=== PATIENT | male | born 1955 | race Two or more races ===

== ENCOUNTER 2016-12-27 22:57 | Inpatient (IN) | payer OTHER ==
[~2016-12-27] VITALS: Ht 168.9 cm; Wt 111.1 kg
--- NOTE | 2016-12-27 23:21 | Emergency Room Report ---
History of Present Illness General Chief Complaint: Dyspnea/Respdistress Source: Patient, EMS Present Illness HPI 61YOM BIBEMS for SOB for 1 day Productive cough Was admitted 1 month ago for "almost flu" at outside hospital Denies chest pain, abd pain, fever/chills History of asthma/COPD Not on Home O2 Was using home nebs, machine, advair without improvement today Allergies: Coded Allergies: No Known Allergies (Unverified , 12/27/16) Patient History Past Medical History: COPD Past Surgical History: none Pertinent Family History: none Social History: Reports: smoking Immunizations: UTD Reviewed Nursing Documentation: PMH: Agreed, PSxH: Agreed Nursing Documentation-PMH Hx Hypertension: Yes Hx Asthma: Yes Hx Diabetes: Yes Review of Systems All Other Systems: negative except mentioned in HPI Physical Exam Vital Signs Date Time Temp Pulse Resp B/P (MAP) Pulse Ox O2 Delivery O2 Flow Rate FiO2 12/27/16 22:52 97.9 100 18 98 Room Air Sp02 EP Interpretation: reviewed, normal General Appearance: normal inspection, well appearing, no apparent distress, alert, GCS 15, non-toxic Head: normocephalic, atraumatic Eyes: bilateral eye PERRL, bilateral eye EOMI ENT: normal ENT inspection, hearing grossly normal, normal voice Neck: normal inspection, full range of motion, supple, no bony tend Respiratory: normal inspection, lungs clear, normal breath sounds, decreased breath sounds, speaking full sentences, wheezing Cardiovascular #1: regular rate, rhythm, no edema Gastrointestinal: normal inspection, normal bowel sounds, non tender, soft, no guarding, no hernia Genitourinary: no CVA tenderness Musculoskeletal: normal inspection, back normal, normal range of motion, Octavia' s Sign negative Neurologic: normal inspection, alert, oriented x3, responsive, territory sales manager III-XII nml as tested, motor strength/tone normal, speech normal Psychiatric: normal inspection, judgement/insight normal, mood/affect normal Skin: normal inspection, normal color, no rash Lymphatic: normal inspection Medical Decision Making Diagnostic Impression: Primary Impression: COPD exacerbation ER Course VSS. Afebrile. No hypoxia Improved on nebs, steroids Did not warrant Bipap Labs: No leuks. H&h stable CXR: No PNA ECG: TWI in V4-6, 2, 3, AVF SOB Likely COPD exacerbation Improved with nebs, steroids Empiric Azithro/Cefepime given bc of hospitalization one month prior however afebrile, no leuks, not-septic appearing TWI in inferior and lateral leads but troponin is <0.05 and no active chest pain - low suspicion for ACS. Endorsed to Dr Barry at 1130pm for tele admission EKG Diagnostic Results Rate: normal Rhythm: NSR ST Segments: other - TWI in V4-6, 2, 3, AVF ASA given to the pt in ED: No Rhythm Strip Diag. Results EP Interpretation: yes Rate: 90 Rhythm: NSR, no PVC's, no ectopy Last Vital Signs Date Time Temp Pulse Resp B/P (MAP) Pulse Ox O2 Delivery O2 Flow Rate FiO2 12/27/16 22:52 97.9 100 18 98 Room Air Status: improved Disposition: ADMITTED INPATIENT Condition: Serious JUN BERMUDEZ M.D. Dec 27, 2016 23:21
[2016-12-27] MEDS ORDERED: LORazepam Inj 2mg/ml 1ml IV PRN (23:30)
[2016-12-27] MEDS ORDERED: Azithromycin 500 MG in NS 275 ML IV ONE (23:30)
[2016-12-27] MEDS ORDERED: Morphine Sulfate 2mg/ml Inj IVP PRN (23:30)
[2016-12-27] MEDS ORDERED: Cefepime HCl 2 GM in D5W 110 ML IVPB ONE (23:30)
[2016-12-27] MEDS ORDERED: Nitroglycerin Subl 0.4mg tab SL PRN (23:30)
[2016-12-27] MEDS ORDERED: Promethazine/Codeine 5ml UD ORAL PRN (23:30)
[2016-12-27] MEDS ORDERED: Ketorolac 30mg Inj IV PRN (23:30)
[2016-12-27] MEDS ORDERED: Albuterol/Ipratropium 3ml neb HHN PRN (23:30)
[2016-12-27 23:38] LABS: BASOPHILS % (AUTO) 1.7 % (0.0-2.0); EOSINOPHILS % (AUTO) 6.9 % (0.0-3.0); LYMPHOCYTES % (AUTO) 16.2 % (20.0-45.0); MEAN CORPUSCULAR HEMOGLOBIN 26.3 PG (27.0-31.0); MEAN CORPUSCULAR HGB CONC 29.1 G/DL (32.0-36.0); MEAN CORPUSCULAR VOLUME 90 FL (80-99); MONOCYTES % (AUTO) 7.6 % (1.0-10.0); NEUTROPHILS % (AUTO) 67.7 % (45.0-75.0); PLATELET COUNT 227 K/UL (150-450); RED BLOOD COUNT 4.58 M/UL (4.70-6.10); RED CELL DISTRIBUTION WIDTH 16.1 % (11.6-14.8); WHITE BLOOD COUNT 10.6 K/UL (4.8-10.8)
[2016-12-27] MEDS ORDERED: Albuterol ud Inhalation ONE (23:56)
[2016-12-27] MEDS ORDERED: Ipratropium 0.02% Inh Soln 2.5ml UD ONE (23:56)
[2016-12-28] VITALS (7 sets, daily range): BP systolic 143–167; BP diastolic 72–93
[2016-12-28 00:04] LABS: ALANINE AMINOTRANSFERASE 26 U/L (12-78); ALBUMIN/GLOBULIN RATIO 0.6 (1.0-2.7); ANION GAP 6 (5-15); ASPARTATE AMINO TRANSFERASE 29 U/L (15-37); CALCIUM 9.3 MG/DL (8.5-10.1); CARBON DIOXIDE 35 MMOL/L (21-32); CHLORIDE 102 MMOL/L (98-107); CKMB 3.8 NG/ML (0.0-3.6); CREATININE 1.2 MG/DL (0.55-1.30); GLOMERULAR FILTRATION RATE > 60 mL/min (>60); POTASSIUM 3.6 MMOL/L (3.5-5.1); SODIUM 143 MMOL/L (136-145); TOTAL PROTEIN 7.7 G/DL (6.4-8.2)
[2016-12-28] MEDS ORDERED: Cefepime 2gm ONE (00:08)
[2016-12-28] MEDS: Ipratropium 0.02% Inh Soln 2.5ml UD HHN SCH ×2 (00:12→00:13)
[2016-12-28] MEDS: Albuterol ud Inhalation HHN SCH ×2 (00:12→00:13)
[2016-12-28] MEDS ORDERED: Azithromycin 500mg Inj IV ONE (01:30)
[2016-12-28] MEDS ORDERED: ALBUTEROL2.5 MG/3 M INH (02:57)
[2016-12-28] MEDS ORDERED: ASPIR 8181 MG ORAL (02:58)
[2016-12-28] MEDS ORDERED: Zosyn 3.375gm inj ONE (04:51)
[2016-12-28] MEDS: Solu-MEDROL 125mg Inj IV SCH ×4 (05:29→22:12)
[2016-12-28] MEDS: Zosyn 3.375gm q8h **Extended infusion IVPB SCH ×4 (05:31→13:54)
[2016-12-28] MEDS ORDERED: Piperacillin/Tazobactam 2.25 GM in D5W 55 ML IV SCH (06:00)
[2016-12-28] MEDS ORDERED: Theophylline ER 100mg ORAL SCH (09:00)
[2016-12-28] MEDS ORDERED: Heparin 5000 units/ml inj SUBQ SCH (09:00)
--- NOTE | 2016-12-28 11:33 | History and Physical ---
History of Present Illness General Date patient seen: Dec 28, 2016 Reason for Hospitalization: Dyspnea/Respdistress Present Illness HPI 61 year old male with hx of asthma, HTN, DM presented to [facility] with cc of f SOB for 1 day and productive cough Denies chest pain, abd pain, fever/chills. He was using home nebs, machine, advair without improvement. He is admitted for acute exacerbation of Asthma. Allergies: Coded Allergies: No Known Allergies (Unverified , 12/27/16) Medication History Scheduled Aspirin* (Aspir 81*), 81 MG ORAL DAILY, (Reported) Scheduled PRN Albuterol Sulfate* (Albuterol Sulfate Hhn*), 3 ML INH Q4H PRN for Shortness of Breath, (Reported) Patient History Healthcare decision maker Resuscitation status Full Code Advanced Directive on File No Past Medical/Surgical History Past Medical/Surgical History: (1) Diabetes mellitus (2) HTN (hypertension) Review of Systems Constitutional: Reports: no symptoms Eye: Reports: no symptoms ENT: Reports: no symptoms Physical Exam General Appearance: WD/WN Lines, tubes and drains: peripheral Neck: non-tender, normal alignment Respiratory/Chest: chest wall non-tender, lungs clear Breasts: no masses Cardiovascular/Chest: normal peripheral pulses, normal rate Abdomen: normal bowel sounds, non tender Genitourinary/Rectal: normal genital exam Skin Exam: normal pigmentation Last 24 Hour Vital Signs Date Time Temp Pulse Resp B/P (MAP) Pulse Ox O2 Delivery O2 Flow Rate FiO2 12/28/16 08:48 97.7 82 20 161/91 93 Room Air 12/28/16 08:00 77 12/28/16 07:41 81 20 Room Air 12/28/16 04:47 95 20 97 Room Air 21 12/28/16 04:46 92 20 93 Room Air 12/28/16 04:00 83 12/28/16 03:31 97.3 87 20 143/90 96 Room Air 12/28/16 03:15 98 17 156/85 96 Room Air 12/28/16 01:30 97.9 88 23 152/79 99 Room Air 12/28/16 01:05 83 18 99 Room Air 21 12/28/16 00:45 97.9 98 17 156/85 93 Room Air 21 12/28/16 00:14 21 12/28/16 00:14 89 20 Room Air 21 12/28/16 00:13 89 20 93 Room Air 21 12/27/16 23:10 88 23 Room Air 12/27/16 22:52 97.9 100 18 98 Room Air Intake and Output 12/28/16 12/29/16 19:00 07:00 Intake Total 82.5 ml Balance 82.5 ml IV Total 82.5 ml Laboratory Tests Test 12/27/16 23:10 White Blood Count 10.6 K/UL (4.8-10.8) Red Blood Count 4.58 M/UL (4.70-6.10) L Hemoglobin 12.0 G/DL (14.2-18.0) L Hematocrit 41.3 % (42.0-52.0) L Mean Corpuscular Volume 90 FL (80-99) Mean Corpuscular Hemoglobin 26.3 PG (27.0-31.0) L Mean Corpuscular Hemoglobin Concent 29.1 G/DL (32.0-36.0) L Red Cell Distribution Width 16.1 % (11.6-14.8) H Platelet Count 227 K/UL (150-450) Mean Platelet Volume 7.0 FL (6.5-10.1) Neutrophils (%) (Auto) 67.7 % (45.0-75.0) Lymphocytes (%) (Auto) 16.2 % (20.0-45.0) L Monocytes (%) (Auto) 7.6 % (1.0-10.0) Eosinophils (%) (Auto) 6.9 % (0.0-3.0) H Basophils (%) (Auto) 1.7 % (0.0-2.0) Sodium Level 143 MMOL/L (136-145) Potassium Level 3.6 MMOL/L (3.5-5.1) Chloride Level 102 MMOL/L (98-107) Carbon Dioxide Level 35 MMOL/L (21-32) H Anion Gap 6 (5-15) Blood Urea Nitrogen 23 mg/dL (7-18) H Creatinine 1.2 MG/DL (0.55-1.30) Estimat Glomerular Filtration Rate > 60 mL/min (>60) Glucose Level 186 MG/DL (74-106) H Calcium Level 9.3 MG/DL (8.5-10.1) Total Bilirubin 0.2 MG/DL (0.2-1.0) Aspartate Amino Transf (AST/SGOT) 29 U/L (15-37) Alanine Aminotransferase (ALT/SGPT) 26 U/L (12-78) Alkaline Phosphatase 99 U/L (46-116) Total Creatine Kinase 436 U/L (26-308) H Creatine Kinase MB 3.8 NG/ML (0.0-3.6) H Creatine Kinase MB Relative Index 0.8 Troponin I 0.004 ng/mL (0.000-0.056) Pro-B-Type Natriuretic Peptide 152 (0-125) H Total Protein 7.7 G/DL (6.4-8.2) Albumin 3.0 G/DL (3.4-5.0) L Globulin 4.7 g/dL Albumin/Globulin Ratio 0.6 (1.0-2.7) L Height (Feet): 5 Height (Inches): 6.50 Weight (Pounds): 245 Medications Current Medications Medications (Trade) Dose Ordered Sig/Carrie Route PRN Reason Start Time Stop Time Status Last Admin Dose Admin Albuterol/ Ipratropium (DuoNeb 0.5-3(2.5)mg/3ml) 3 ml Q4H PRN HHN dyspnea 12/27/16 23:30 01/01/17 23:29 12/28/16 04:46 Dextrose (Dextrose 50%) STAT PRN IV Hypoglycemia 12/27/16 23:30 01/26/17 23:29 Heparin Sodium (Porcine) (Heparin 5000 units/ml) 5,000 units EVERY 12 HOURS SUBQ 12/28/16 09:00 01/27/17 08:59 12/28/16 09:54 Ketorolac Tromethamine (Toradol 30mg) 30 mg Q8H PRN IV moderate pain 4-6 12/27/16 23:30 01/01/17 23:29 Lorazepam (Ativan 2mg/ml 1ml) 0.5 mg Q4H PRN IV For Anxiety 12/27/16 23:30 01/03/17 23:29 Methylprednisolone Sodium Succinate (Solu-MEDROL) 60 mg Q6H IV 12/28/16 04:00 01/27/17 03:59 12/28/16 09:52 Morphine Sulfate (Morphine Sulfate) 2 mg Q4H PRN IVP severe pain 7-10 12/27/16 23:30 01/03/17 23:29 Nitroglycerin (Ntg) 0.4 mg Q5M X 3 DOSES PRN SL Prn Chest Pain 12/27/16 23:30 01/26/17 23:29 Ondansetron HCl (Zofran) 4 mg Q6H PRN IVP Nausea & Vomiting 12/27/16 23:30 01/26/17 23:29 Piperacillin Sod/ Tazobactam Sod 3.375 gm/Dextrose 110 ml @ 27.5 mls/hr Q8HR IVPB 12/28/16 06:00 01/04/17 05:59 12/28/16 05:31 Promethazine HCl/ Codeine (Phenergan with Codeine) 5 ml Q6H PRN ORAL cough 12/27/16 23:30 01/26/17 23:29 Temazepam (Restoril) 15 mg HSPRN PRN ORAL Insomnia 12/27/16 23:30 01/03/17 23:29 Theophylline (Marco-Dur) 100 mg EVERY 12 HOURS ORAL 12/28/16 09:00 01/27/17 08:59 12/28/16 09:52 Assessment/Plan Problem List: (1) COPD exacerbation ICD Codes: J44.1 - Chronic obstructive pulmonary disease with (acute) exacerbation SNOMED: 282309212, 109423829 (2) Purulent bronchitis ICD Codes: J41.1 - Mucopurulent chronic bronchitis SNOMED: 52998831 (3) Diabetes mellitus ICD Codes: E11.9 - Type 2 diabetes mellitus without complications SNOMED: 82123429 (4) HTN (hypertension) ICD Codes: I10 - Essential (primary) hypertension SNOMED: 71799620 Assessment/Plan respiratory treatment IV steroids check sputum titrate fio2 KAROL SEGURA Dec 28, 2016 11:33
--- NOTE | 2016-12-28 11:38 | Diagnostic Imaging Report ---
Indication: SOB Technique: One view of the chest Comparison: none Findings: The heart is borderline enlarged. Lungs and pleural spaces are clear. Impression: No acute process Borderline cardiomegaly
[2016-12-28] MEDS ORDERED: Ketorolac 30mg Inj IV PRN (15:45)
[2016-12-28] MEDS ORDERED: LORazepam Inj 2mg/ml 1ml IV PRN (15:45)
[2016-12-28] MEDS ORDERED: Morphine Sulfate 2mg/ml Inj IVP PRN (15:45)
[2016-12-28] MEDS ORDERED: Nitroglycerin Subl 0.4mg tab SL PRN (15:45)
[2016-12-28] MEDS ORDERED: Promethazine/Codeine 5ml UD ORAL PRN (15:45)
[2016-12-28] MEDS ORDERED: NovoLOG Insulin Flexpen SUBQ SCH (16:30)
--- NOTE | 2016-12-28 17:22 | Cardiology Report ---
APPROVED REPORT EXAM: Two-dimensional and M-mode echocardiogram with Doppler and color Doppler. INDICATION Left ventricular function M-Mode DIMENSIONS IVSd0.9 (0.7-1.1cm)Left Atrium (MM)3.7 (1.6-4.0cm) LVDd5.4 (3.5-5.6cm)Aortic Root3.2 (2.0-3.7cm) PWd1.0 (0.7-1.1cm)Aortic Cusp Exc.1.8 (1.5-2.0cm) LVDs3.5 (2.5-4.0cm) PWs1.7 cm Technically difficult study due to poor acoustical windows. Grossley normal left ventricular chamber size, systolic function and wall motion to [facility] vizualized Left ventricular ejection fraction estimated to be 60-65%. Mild left ventricular hypertrophy. No evidence of pericardial or pleural effusion. All other cardiac chamber sizes are within normal limits. Focal aortic valve sclerosis with adequate cusp excursion. Thickened mitral valve leaflets with normal excursion. Mild mitral annulus and aortic root calcification. Pulmonic valve not well visualized. Normal tricuspid valve structure. IVC is normal in size and collapsible with respiration. A color flow and spectral Doppler study was performed and revealed: No aortic regurgitation. No mitral regurgitation. Mitral diastolic velocities suggest reduced left ventricular relaxation c/w diastolic dysfunction grade 1. No tricuspid regurgitation.
[2016-12-28] MEDS: NovoLOG Insulin Flexpen SUBQ SCH ×2 (17:42→22:15)
[2016-12-28] MEDS: Albuterol/Ipratropium 3ml neb HHN PRN (19:21)
[2016-12-28] MEDS: Theophylline ER 100mg ORAL SCH (22:13)
[2016-12-28] MEDS: Piperacillin/Tazobactam 3.375 GM in D5W 110 ML IVPB SCH (22:13)
[2016-12-28] MEDS: Heparin 5000 units/ml inj SUBQ SCH (22:14)
[2016-12-29] VITALS: BP 146/90
[2016-12-29] MEDS: Solu-MEDROL 125mg Inj IV SCH ×2 (03:55→09:47)
[2016-12-29 04:00] VITALS: BP 148/94
[2016-12-29] MEDS: Piperacillin/Tazobactam 3.375 GM in D5W 110 ML IVPB SCH ×3 (05:22→21:41)
[2016-12-29] MEDS: Albuterol/Ipratropium 3ml neb HHN PRN (05:55)
[2016-12-29] MEDS: NovoLOG Insulin Flexpen SUBQ SCH ×4 (06:27→21:43)
[2016-12-29 08:08] VITALS: BP 149/90
[2016-12-29 08:27] LABS: MEAN CORPUSCULAR HEMOGLOBIN 28.3 PG (27.0-31.0); MEAN CORPUSCULAR HGB CONC 32.3 G/DL (32.0-36.0); MEAN CORPUSCULAR VOLUME 88 FL (80-99); MEAN PLATELET VOLUME 7.3 FL (6.5-10.1); PLATELET COUNT 250 K/UL (150-450); RED BLOOD COUNT 4.38 M/UL (4.70-6.10); RED CELL DISTRIBUTION WIDTH 15.8 % (11.6-14.8); WHITE BLOOD COUNT 13.1 K/UL (4.8-10.8)
[2016-12-29 09:02] LABS: ALANINE AMINOTRANSFERASE 23 U/L (12-78); ALBUMIN/GLOBULIN RATIO 0.6 (1.0-2.7); ANION GAP 5 (5-15); ASPARTATE AMINO TRANSFERASE 14 U/L (15-37); CALCIUM 9.1 MG/DL (8.5-10.1); CARBON DIOXIDE 32 MMOL/L (21-32); CHLORIDE 99 MMOL/L (98-107); CREATININE 1.3 MG/DL (0.55-1.30); CRP QUANT 1.6 mg/dL (0.00-0.90); GLOMERULAR FILTRATION RATE 56.3 mL/min (>60); MAGNESIUM 1.9 MG/DL (1.8-2.4); PHOSPHORUS 2.7 MG/DL (2.5-4.9); POTASSIUM 3.1 MMOL/L (3.5-5.1); SODIUM 136 MMOL/L (136-145); TOTAL PROTEIN 7.5 G/DL (6.4-8.2)
[2016-12-29 09:47] LABS: ERYTHROCYTE SEDIMENTATION RATE 54 MM/HR (0-20)
[2016-12-29] MEDS: Theophylline ER 100mg ORAL SCH ×2 (09:47→21:40)
[2016-12-29] MEDS: Heparin 5000 units/ml inj SUBQ SCH ×2 (09:51→21:43)
[2016-12-29 10:23] LABS: ANISOCYTOSIS 1+; BAND NEUTROPHILS % (MANUAL) 0 % (0-8); BASOPHILS % (MANUAL) 0 % (0-2); EOSINOPHILS % (MANUAL) 0 % (0-3); LYMPHOCYTES % (MANUAL) 5 % (20-45); NEUTROPHILS % (MANUAL) 92 % (45-75); PLATELET ESTIMATE ADEQUATE; PLATELET MORPHOLOGY NORMAL; TOTAL CELLS COUNTED 100
[2016-12-29 12:00] VITALS: BP 170/93
[2016-12-29] MEDS: Albuterol/Ipratropium 3ml neb HHN SCH ×2 (12:54→19:46)
--- NOTE | 2016-12-29 14:03 | Consultation ---
History of Present Illness General Date patient seen: Dec 29, 2016 Time patient seen: 14:03 Chief Complaint: Dyspnea/Respdistress Reason for Consultation: bacteremia Present Illness HPI ID Consult Note 61 y/o M with hx of HTN, Dm2, Asthma/COPD presents to ED on 12/27 with 1 day of productive cough and SOB, not responding to home use of nebs, advair. Initial working diagnosis of Asthma exacerbation. Demoes CP,a bd pain, f/c upon admission OF note, recent admission 1 month ago for PNA at an outside hospital. ID consulted for GP and GN bacteremia. Has been afebrile. Mild leukocytosis today. Allergies: Coded Allergies: No Known Allergies (Unverified , 12/27/16) Medication History Scheduled Aspirin* (Aspir 81*), 81 MG ORAL DAILY, (Reported) Scheduled PRN Albuterol Sulfate* (Albuterol Sulfate Hhn*), 3 ML INH Q4H PRN for Shortness of Breath, (Reported) Patient History Healthcare decision maker Resuscitation status Full Code Advanced Directive on File No Patient History Narrative PMhx: As above Shx: +tobacco use Fhx: Non contributory Review of Systems All Other Systems: negative except mentioned in HPI Physical Exam Physical Exam Narrative General Appearance: normal inspection, well appearing, no apparent distress HEENTL: PERRL, no oral lesions Neck: supple Respiratory: normal inspection, lungs clear, normal breath sounds, Cardiovascular regular rate, rhythm, no hugo Gastrointestinal: normal inspection, normal bowel sounds, non tender, soft, no guarding, Musculoskeletal: normal inspection, back normal, normal range of motion, Neurologic: normal inspection, alert, oriented x3, responsive, Skin: normal inspection, normal color, no rash Last 24 Hour Vital Signs Date Time Temp Pulse Resp B/P (MAP) Pulse Ox O2 Delivery O2 Flow Rate FiO2 12/29/16 13:01 83 20 99 Room Air 12/29/16 12:54 83 20 92 Room Air 12/29/16 12:00 97.7 82 22 170/93 92 12/29/16 08:12 88 20 Room Air 21 12/29/16 08:08 98.4 83 19 149/90 93 Room Air 12/29/16 06:14 81 20 97 Room Air 21 12/29/16 05:56 81 20 94 Room Air 21 12/29/16 04:00 97.7 80 20 148/94 Room Air 12/29/16 00:00 97.9 97 18 146/90 94 Nasal Cannula 12/28/16 20:00 97.7 93 20 167/72 92 Room Air 12/28/16 19:00 85 20 Room Air 21 12/28/16 16:02 97.2 95 20 158/93 95 Room Air Intake and Output 12/29/16 12/30/16 19:00 07:00 Intake Total 240 ml Output Total 120 ml Balance 120 ml Intake Oral 240 ml Output Urine Total 120 ml Laboratory Tests Test 12/29/16 07:32 White Blood Count 13.1 K/UL (4.8-10.8) H Red Blood Count 4.38 M/UL (4.70-6.10) L Hemoglobin 12.4 G/DL (14.2-18.0) L Hematocrit 38.4 % (42.0-52.0) L Mean Corpuscular Volume 88 FL (80-99) Mean Corpuscular Hemoglobin 28.3 PG (27.0-31.0) Mean Corpuscular Hemoglobin Concent 32.3 G/DL (32.0-36.0) Red Cell Distribution Width 15.8 % (11.6-14.8) H Platelet Count 250 K/UL (150-450) Mean Platelet Volume 7.3 FL (6.5-10.1) Neutrophils (%) (Auto) % (45.0-75.0) Lymphocytes (%) (Auto) % (20.0-45.0) Monocytes (%) (Auto) % (1.0-10.0) Eosinophils (%) (Auto) % (0.0-3.0) Basophils (%) (Auto) % (0.0-2.0) Differential Total Cells Counted 100 Neutrophils % (Manual) 92 % (45-75) H Lymphocytes % (Manual) 5 % (20-45) L Monocytes % (Manual) 3 % (1-10) Eosinophils % (Manual) 0 % (0-3) Basophils % (Manual) 0 % (0-2) Band Neutrophils 0 % (0-8) Platelet Estimate Adequate Platelet Morphology Normal Anisocytosis 1+ Erythrocyte Sedimentation Rate 54 MM/HR (0-20) H Sodium Level 136 MMOL/L (136-145) Potassium Level 3.1 MMOL/L (3.5-5.1) L Chloride Level 99 MMOL/L (98-107) Carbon Dioxide Level 32 MMOL/L (21-32) Anion Gap 5 (5-15) Blood Urea Nitrogen 22 mg/dL (7-18) H Creatinine 1.3 MG/DL (0.55-1.30) Estimat Glomerular Filtration Rate 56.3 mL/min (>60) Glucose Level 221 MG/DL (74-106) H Calcium Level 9.1 MG/DL (8.5-10.1) Phosphorus Level 2.7 MG/DL (2.5-4.9) Magnesium Level 1.9 MG/DL (1.8-2.4) Total Bilirubin 0.2 MG/DL (0.2-1.0) Aspartate Amino Transf (AST/SGOT) 14 U/L (15-37) L Alanine Aminotransferase (ALT/SGPT) 23 U/L (12-78) Alkaline Phosphatase 90 U/L (46-116) C-Reactive Protein, Quantitative 1.6 mg/dL (0.00-0.90) H Total Protein 7.5 G/DL (6.4-8.2) Albumin 2.8 G/DL (3.4-5.0) L Globulin 4.7 g/dL Albumin/Globulin Ratio 0.6 (1.0-2.7) L reviewed Height (Feet): 5 Height (Inches): 6.50 Weight (Pounds): 245 Medications Current Medications Medications (Trade) Dose Ordered Sig/Carrie Route PRN Reason Start Time Stop Time Status Last Admin Dose Admin Albuterol/ Ipratropium (DuoNeb 0.5-3(2.5)mg/3ml) 3 ml Q4H PRN HHN dyspnea 12/28/16 15:45 01/01/17 15:44 12/29/16 05:55 Albuterol/ Ipratropium (DuoNeb 0.5-3(2.5)mg/3ml) 3 ml Q6HRT N 12/29/16 13:00 01/03/17 12:59 12/29/16 12:54 Dextrose (Dextrose 50%) STAT PRN IV Hypoglycemia 12/28/16 15:45 01/27/17 15:44 Heparin Sodium (Porcine) (Heparin 5000 units/ml) 5,000 units EVERY 12 HOURS SUBQ 12/28/16 21:00 01/27/17 08:59 12/29/16 09:51 Insulin Aspart (NovoLOG) BEFORE MEALS AND HS SUBQ 12/28/16 16:30 01/27/17 16:29 12/29/16 12:01 Ketorolac Tromethamine (Toradol 30mg) 30 mg Q8H PRN IV moderate pain 4-6 12/28/16 15:45 01/01/17 15:44 Lorazepam (Ativan 2mg/ml 1ml) 0.5 mg Q4H PRN IV For Anxiety 12/28/16 15:45 01/03/17 15:44 Methylprednisolone Sodium Succinate (Solu-MEDROL) 60 mg Q6H IV 12/28/16 16:00 01/27/17 03:59 12/29/16 09:47 Morphine Sulfate (Morphine Sulfate) 2 mg Q4H PRN IVP severe pain 7-10 12/28/16 15:45 01/03/17 15:44 Nitroglycerin (Ntg) 0.4 mg Q5M X 3 DOSES PRN SL Prn Chest Pain 12/28/16 15:45 01/26/17 23:29 Ondansetron HCl (Zofran) 4 mg Q6H PRN IVP Nausea & Vomiting 12/28/16 15:45 01/26/17 15:44 Piperacillin Sod/ Tazobactam Sod 3.375 gm/Dextrose 110 ml @ 27.5 mls/hr Q8HR IVPB 12/28/16 22:00 01/04/17 05:59 12/29/16 13:26 Promethazine HCl/ Codeine (Phenergan with Codeine) 5 ml Q6H PRN ORAL cough 12/28/16 15:45 01/26/17 15:44 Temazepam (Restoril) 15 mg HSPRN PRN ORAL Insomnia 12/28/16 15:45 01/03/17 15:44 Theophylline (Marco-Dur) 100 mg EVERY 12 HOURS ORAL 12/28/16 21:00 01/27/17 08:59 12/29/16 09:47 Assessment/Plan Assessment/Plan Abx: Zosyn 12/27- Assesment: Asthma/COPD exacerbation; improving Polymicrobial bacteremia- r/o contamination vs real -2d ECHO: no vegetations seen. Thickened mitral valve leaflets with normal excursion, no other significant valve abnormalities. Leukocytosis, mild Afebrile HTN DM2 Plan: -Continue Zosyn for now pending ID GNR bcx -Start IV Vancomycin for GPC bacteremia -repeat 2 sets of Bcx -f/u cx -monitor CBC/BMP, temperatures Thank you for this consultation. Will continue to follow along with you. Discussed with RN and Kaylie Fallon M.D. Dec 29, 2016 14:03
[2016-12-29 16:00] VITALS: BP 165/90
[2016-12-29] MEDS ORDERED: Vancomycin 1.5gm/D5W 250ml 250 ML IVPB ONE (16:00)
--- NOTE | 2016-12-29 16:50 | Pulmonology Progress Note ---
Assessment/Plan Problems: (1) Gram-negative bacteremia (2) COPD exacerbation (3) Purulent bronchitis (4) Diabetes mellitus (5) HTN (hypertension) Assessment/Plan ID evaluation continue abx check cultures taper steroids ? etiology of bacteremia Subjective ROS Limited/Unobtainable: No Constitutional: Reports: no symptoms HEENT: Repors: no symptoms Respiratory: Reports: no symptoms Cardiovascular: Reports: no symptoms Allergies: Coded Allergies: No Known Allergies (Unverified , 12/27/16) Objective Last 24 Hour Vital Signs Date Time Temp Pulse Resp B/P (MAP) Pulse Ox O2 Delivery O2 Flow Rate FiO2 12/29/16 13:01 83 20 99 Room Air 21 12/29/16 12:54 83 20 92 Room Air 21 12/29/16 12:00 97.7 82 22 170/93 92 12/29/16 08:12 88 20 Room Air 21 12/29/16 08:08 98.4 83 19 149/90 93 Room Air 12/29/16 06:14 81 20 97 Room Air 21 12/29/16 05:56 81 20 94 Room Air 21 12/29/16 04:00 97.7 80 20 148/94 Room Air 12/29/16 00:00 97.9 97 18 146/90 94 Nasal Cannula 12/28/16 20:00 97.7 93 20 167/72 92 Room Air 12/28/16 19:00 85 20 Room Air 21 Intake and Output 12/29/16 12/30/16 19:00 07:00 Intake Total 240 ml Output Total 120 ml Balance 120 ml Intake Oral 240 ml Output Urine Total 120 ml General Appearance: WD/WN HEENT: normocephalic, atraumatic Respiratory/Chest: chest wall non-tender, lungs clear Cardiovascular: normal peripheral pulses, normal rate Abdomen: normal bowel sounds, soft, non tender Genitourinary: normal external genitalia Extremities: no cyanosis Skin: no rash Microbiology Date/Time Source Procedure Growth Status 12/28/16 00:15 Blood Blood Culture - Preliminary Resulted 12/28/16 00:00 Blood Blood Culture - Preliminary NO GROWTH AFTER 24 HOURS Resulted Laboratory Tests 12/29/16 07:32: White Blood Count 13.1H, Red Blood Count 4.38L, Hemoglobin 12.4L, Hematocrit 38.4L, Mean Corpuscular Volume 88, Mean Corpuscular Hemoglobin 28.3, Mean Corpuscular Hemoglobin Concent 32.3, Red Cell Distribution Width 15.8H, Platelet Count 250, Mean Platelet Volume 7.3, Neutrophils (%) (Auto) , Lymphocytes (%) (Auto) , Monocytes (%) (Auto) , Eosinophils (%) (Auto) , Basophils (%) (Auto) , Differential Total Cells Counted 100, Neutrophils % ( Manual) 92H, Lymphocytes % (Manual) 5L, Monocytes % (Manual) 3, Eosinophils % ( Manual) 0, Basophils % (Manual) 0, Band Neutrophils 0, Platelet Estimate Adequate, Platelet Morphology Normal, Anisocytosis 1+, Erythrocyte Sedimentation Rate 54H, Sodium Level 136, Potassium Level 3.1L, Chloride Level 99, Carbon Dioxide Level 32, Anion Gap 5, Blood Urea Nitrogen 22H, Creatinine 1.3, Estimat Glomerular Filtration Rate 56.3, Glucose Level 221H, Calcium Level 9.1, Phosphorus Level 2.7, Magnesium Level 1.9, Total Bilirubin 0.2, Aspartate Amino Transf (AST/SGOT) 14L, Alanine Aminotransferase (ALT/SGPT) 23, Alkaline Phosphatase 90, C-Reactive Protein, Quantitative 1.6H, Total Protein 7.5, Albumin 2.8L, Globulin 4.7, Albumin/Globulin Ratio 0.6L Current Medications Medications (Trade) Dose Ordered Sig/Carrie Route PRN Reason Start Time Stop Time Status Last Admin Dose Admin Albuterol/ Ipratropium (DuoNeb 0.5-3(2.5)mg/3ml) 3 ml Q4H PRN HHN dyspnea 12/28/16 15:45 01/01/17 15:44 12/29/16 05:55 Albuterol/ Ipratropium (DuoNeb 0.5-3(2.5)mg/3ml) 3 ml Q6HRT HHN 12/29/16 13:00 01/03/17 12:59 12/29/16 12:54 Amlodipine Besylate (Norvasc) 5 mg DAILY ORAL 12/30/16 09:00 01/29/17 08:59 Dextrose (Dextrose 50%) STAT PRN IV Hypoglycemia 12/28/16 15:45 01/27/17 15:44 Heparin Sodium (Porcine) (Heparin 5000 units/ml) 5,000 units EVERY 12 HOURS SUBQ 12/28/16 21:00 01/27/17 08:59 12/29/16 09:51 Insulin Aspart (NovoLOG) BEFORE MEALS AND HS SUBQ 12/28/16 16:30 01/27/17 16:29 12/29/16 12:01 Ketorolac Tromethamine (Toradol 30mg) 30 mg Q8H PRN IV moderate pain 4-6 12/28/16 15:45 01/01/17 15:44 Lorazepam (Ativan 2mg/ml 1ml) 0.5 mg Q4H PRN IV For Anxiety 12/28/16 15:45 01/03/17 15:44 Methylprednisolone Sodium Succinate (Solu-MEDROL) 60 mg Q6H IV 12/28/16 16:00 01/27/17 03:59 12/29/16 09:47 Morphine Sulfate (Morphine Sulfate) 2 mg Q4H PRN IVP severe pain 7-10 12/28/16 15:45 01/03/17 15:44 Nitroglycerin (Ntg) 0.4 mg Q5M X 3 DOSES PRN SL Prn Chest Pain 12/28/16 15:45 01/26/17 23:29 Ondansetron HCl (Zofran) 4 mg Q6H PRN IVP Nausea & Vomiting 12/28/16 15:45 01/26/17 15:44 Piperacillin Sod/ Tazobactam Sod 3.375 gm/Dextrose 110 ml @ 27.5 mls/hr Q8HR IVPB 12/28/16 22:00 01/04/17 05:59 12/29/16 13:26 Promethazine HCl/ Codeine (Phenergan with Codeine) 5 ml Q6H PRN ORAL cough 12/28/16 15:45 01/26/17 15:44 Temazepam (Restoril) 15 mg HSPRN PRN ORAL Insomnia 12/28/16 15:45 01/03/17 15:44 Theophylline (Mraco-Dur) 100 mg EVERY 12 HOURS ORAL 12/28/16 21:00 01/27/17 08:59 12/29/16 09:47 Vancomycin HCl (Vanco rx to dose) 1 ea DAILY PRN MISC Per rx protocol 12/29/16 14:45 01/28/17 14:44 Vancomycin HCl/ Dextrose 250 ml @ 125 mls/hr ONCE ONCE IVPB 12/29/16 16:00 12/29/16 17:59 Vancomycin HCl/ Dextrose 250 ml @ 166.667 mls/hr Q12HR@0400,1600 IVPB 12/30/16 04:00 01/04/17 03:59 KAROL SEGURA Dec 29, 2016 16:50
[2016-12-29 18:45] LABS: APPEARANCE,URINE CLEAR; KETONES,URINE NEGATIVE (NEGATIVE); LEUKOCYTE ESTERASE ,URINE NEGATIVE (NEGATIVE); NITRITE,URINE NEGATIVE (NEGATIVE); PH,URINE 5 (4.5-8.0); PROTEIN,URINE 3+ (NEGATIVE); UROBILINOGEN,URINE NORMAL MG/DL (0.0-1.0)
[2016-12-29 18:50] LABS: RBC,URINE 0-2 /HPF (0 - 0); WBC,URINE 0-2 /HPF (0 - 0)
[2016-12-29 18:51] LABS: BACTERIA,URINE OCCASIONAL /HPF; SQUAMOUS EPITHELIAL CELL,UR OCCASIONAL /LPF (NONE/OCC)
[2016-12-29] MEDS ORDERED: VITAMIN D1000 UNI1 ORAL (18:51)
[2016-12-29] MEDS ORDERED: ATORVASTATIN CA20 MG ORAL (18:51)
[2016-12-29] MEDS ORDERED: MONTELUKAST SOD10 MG ORAL (18:51)
[2016-12-29] MEDS ORDERED: NORVASC10 MG ORAL (18:51)
[2016-12-29 20:00] VITALS: BP 141/80
[2016-12-30 00:07] VITALS: BP 134/74
[2016-12-30] MEDS: Albuterol/Ipratropium 3ml neb HHN SCH ×5 (00:47→20:02)
[2016-12-30 04:00] VITALS: BP 160/89
[2016-12-30] MEDS ORDERED: Vancomycin 1250mg/D5W 250ml 250 ML IVPB SCH ×2 (04:00→17:00)
[2016-12-30] MEDS: Piperacillin/Tazobactam 3.375 GM in D5W 110 ML IVPB SCH ×2 (05:39→13:40)
[2016-12-30] MEDS: NovoLOG Insulin Flexpen SUBQ SCH ×3 (05:44→16:58)
[2016-12-30 07:34] LABS: MEAN CORPUSCULAR HEMOGLOBIN 27.9 PG (27.0-31.0); MEAN CORPUSCULAR VOLUME 87 FL (80-99); MEAN PLATELET VOLUME 7.8 FL (6.5-10.1); PLATELET COUNT 240 K/UL (150-450); RED BLOOD COUNT 4.32 M/UL (4.70-6.10); RED CELL DISTRIBUTION WIDTH 16.3 % (11.6-14.8); WHITE BLOOD COUNT 12.8 K/UL (4.8-10.8)
[2016-12-30 08:00] VITALS: BP 162/97
[2016-12-30 08:10] LABS: PROTHROMBIN TIME 10.3 SEC (9.30-11.50)
[2016-12-30 08:23] LABS: IRON 74 ug/dL (50-175); TOTAL IRON BINDING CAPACITY 309 ug/dL (250-450)
[2016-12-30] MEDS ORDERED: Aspirin Baby 81mg ORAL SCH (09:00)
[2016-12-30] MEDS ORDERED: Solu-MEDROL 125mg Inj IV SCH (09:00)
[2016-12-30] MEDS ORDERED: Vitamin D 1000 IU Tab ORAL SCH (09:00)
[2016-12-30] MEDS: Theophylline ER 100mg ORAL SCH (09:22)
[2016-12-30] MEDS: Heparin 5000 units/ml inj SUBQ SCH (09:25)
[2016-12-30 09:45] LABS: LACTATE DEHYDROGENASE 223 U/L (81-234)
[2016-12-30 09:49] LABS: ERYTHROCYTE SEDIMENTATION RATE 51 MM/HR (0-20)
[2016-12-30 11:13] LABS: ANISOCYTOSIS 1+; BAND NEUTROPHILS % (MANUAL) 0 % (0-8); BASOPHILS % (MANUAL) 0 % (0-2); EOSINOPHILS % (MANUAL) 0 % (0-3); LYMPHOCYTES % (MANUAL) 15 % (20-45); NEUTROPHILS % (MANUAL) 81 % (45-75); PLATELET ESTIMATE ADEQUATE; PLATELET MORPHOLOGY NORMAL; TOTAL CELLS COUNTED 100
[2016-12-30 12:00] VITALS: BP 166/101
[2016-12-30 12:53] LABS: PATH BLOOD SMEAR/OMC SENT TO PATHOLOGIST; RETICULOCYTE COUNT 1.9 % (0.0-2.0)
--- NOTE | 2016-12-30 15:10 | Pulmonology Progress Note ---
Assessment/Plan Assessment/Plan ASSESSMENT COPD exacerbation acute purulent bronchitis HTN urgency DM hypokalemia bacteremia- real vs contaminant constipation PLAN OF CARE MS floor O2 HHN IV steroids and taper sputum cx empiric abx trial of Theophylline a/tussive prn blood cx 03/24 + GPCC -real vs contaminant ID follows ECHO with EF 60-65% no evidence of contamination leukocytosis likely reactive 2 to steroids BP management with CCB, dose increased BS management with SS of insulin replace K, check in am DVT prophayxlsi bowel regimen case discussed and evaluated by supervising physician Subjective Allergies: Coded Allergies: No Known Allergies (Unverified , 12/27/16) Subjective admits to chest tightness, cough, overall nonproductive, less wheezing, no hemoptysis no chest pain Objective Last 24 Hour Vital Signs Date Time Temp Pulse Resp B/P (MAP) Pulse Ox O2 Delivery O2 Flow Rate FiO2 12/30/16 12:49 87 20 97 Room Air 21 12/30/16 12:39 83 20 93 Room Air 21 12/30/16 12:00 97.7 90 18 166/101 92 Room Air 12/30/16 09:23 83 162/77 12/30/16 08:44 84 20 98 Room Air 21 12/30/16 08:36 83 20 Room Air 21 12/30/16 08:33 85 20 94 Room Air 21 12/30/16 08:00 97.7 90 15 162/97 98 12/30/16 04:00 98.4 77 24 160/89 94 Room Air 12/30/16 00:54 88 20 99 Room Air 21 12/30/16 00:50 81 20 94 Room Air 21 12/30/16 00:07 97.9 81 20 134/74 93 Room Air 12/29/16 20:00 98.0 89 20 141/80 94 Room Air 12/29/16 19:52 85 20 99 Room Air 21 12/29/16 19:47 90 20 93 Room Air 21 12/29/16 19:47 90 20 Room Air 21 12/29/16 17:03 83 165/90 12/29/16 16:00 98.2 83 15 165/90 92 General Appearance: WD/WN, no acute distress HEENT: normocephalic, atraumatic, anicteric Respiratory/Chest: chest wall non-tender, lungs clear, expiratory wheezing - few scattered in posterior rahman Cardiovascular: normal peripheral pulses, normal rate, regular rhythm, no JVD Abdomen: normal bowel sounds - obese, soft, non tender Extremities: no edema Neurologic/Psychiatric: no motor/sensory deficits, alert, oriented x 3, responsive Musculoskeletal: normal muscle bulk Microbiology Date/Time Source Procedure Growth Status 12/28/16 00:15 Blood Blood Culture - Preliminary Staphylococcus Sp Coag Neg Resulted 12/28/16 00:00 Blood Blood Culture - Preliminary NO GROWTH AFTER 48 HOURS Resulted Laboratory Tests 12/29/16 18:10: Urine Color Pale yellow, Urine Appearance Clear, Urine pH 5, Urine Specific Paradox 1.020, Urine Protein 3+H, Urine Glucose (UA) 1+H, Urine Ketones Negative , Urine Occult Blood Negative, Urine Nitrite Negative, Urine Bilirubin Negative , Urine Urobilinogen Normal, Urine Leukocyte Esterase Negative, Urine RBC 0-2H, Urine WBC 0-2, Urine Squamous Epithelial Cells Occasional, Urine Bacteria Occasional 12/30/16 06:30: White Blood Count 12.8H, Red Blood Count 4.32L, Hemoglobin 12.1L, Hematocrit 37.7L, Mean Corpuscular Volume 87, Mean Corpuscular Hemoglobin 27.9, Mean Corpuscular Hemoglobin Concent 32.0, Red Cell Distribution Width 16.3H, Platelet Count 240, Mean Platelet Volume 7.8, Neutrophils (%) (Auto) , Lymphocytes (%) (Auto) , Monocytes (%) (Auto) , Eosinophils (%) (Auto) , Basophils (%) (Auto) , Differential Total Cells Counted 100, Neutrophils % ( Manual) 81H, Lymphocytes % (Manual) 15L, Monocytes % (Manual) 4, Eosinophils % ( Manual) 0, Basophils % (Manual) 0, Band Neutrophils 0, Platelet Estimate Adequate, Platelet Morphology Normal, Anisocytosis 1+, Erythrocyte Sedimentation Rate 51H, Reticulocyte Count 1.9, Prothrombin Time 10.3, Prothromb Time International Ratio 1.0, Activated Partial Thromboplast Time 27, Iron Level 74, Total Iron Binding Capacity 309, Percent Iron Saturation 24, Unsaturated Iron Binding 235, Lactate Dehydrogenase 223, Carcinoembryonic Antigen [Pending], Vitamin B12 Level 600, Folate [Pending] Current Medications Medications (Trade) Dose Ordered Sig/Carrie Route PRN Reason Start Time Stop Time Status Last Admin Dose Admin Albuterol/ Ipratropium (DuoNeb 0.5-3(2.5)mg/3ml) 3 ml Q4H PRN HHN dyspnea 12/28/16 15:45 01/01/17 15:44 12/29/16 05:55 Albuterol/ Ipratropium (DuoNeb 0.5-3(2.5)mg/3ml) 3 ml Q6HRT HHN 12/29/16 13:00 01/03/17 12:59 12/30/16 12:39 Amlodipine Besylate (Norvasc) 10 mg DAILY ORAL 12/30/16 09:00 01/29/17 08:59 12/30/16 09:23 Aspirin (ASA) 81 mg DAILY ORAL 12/30/16 09:00 01/29/17 08:59 12/30/16 09:23 Atorvastatin Calcium (Lipitor) 10 mg BEDTIME ORAL 12/29/16 21:00 01/28/17 20:59 12/29/16 21:40 Dextrose (Dextrose 50%) STAT PRN IV Hypoglycemia 12/28/16 15:45 01/27/17 15:44 Heparin Sodium (Porcine) (Heparin 5000 units/ml) 5,000 units EVERY 12 HOURS SUBQ 12/28/16 21:00 01/27/17 08:59 12/30/16 09:25 Insulin Aspart (NovoLOG) BEFORE MEALS AND HS SUBQ 12/28/16 16:30 01/27/17 16:29 12/30/16 11:53 Ketorolac Tromethamine (Toradol 30mg) 30 mg Q8H PRN IV moderate pain 4-6 12/28/16 15:45 01/01/17 15:44 Lorazepam (Ativan 2mg/ml 1ml) 0.5 mg Q4H PRN IV For Anxiety 12/28/16 15:45 01/03/17 15:44 Methylprednisolone Sodium Succinate (Solu-MEDROL) 60 mg DAILY IV 12/30/16 09:00 01/27/17 03:59 12/30/16 09:23 Montelukast Sodium (Singulair) 10 mg QPM ORAL 12/30/16 16:30 01/29/17 16:29 Morphine Sulfate (Morphine Sulfate) 2 mg Q4H PRN IVP severe pain 7-10 12/28/16 15:45 01/03/17 15:44 Nitroglycerin (Ntg) 0.4 mg Q5M X 3 DOSES PRN SL Prn Chest Pain 12/28/16 15:45 01/26/17 23:29 Ondansetron HCl (Zofran) 4 mg Q6H PRN IVP Nausea & Vomiting 12/28/16 15:45 01/26/17 15:44 Piperacillin Sod/ Tazobactam Sod 3.375 gm/Dextrose 110 ml @ 27.5 mls/hr Q8HR IVPB 12/28/16 22:00 01/04/17 05:59 12/30/16 13:40 Promethazine HCl/ Codeine (Phenergan with Codeine) 5 ml Q6H PRN ORAL cough 12/28/16 15:45 01/26/17 15:44 Temazepam (Restoril) 15 mg HSPRN PRN ORAL Insomnia 12/28/16 15:45 01/03/17 15:44 Theophylline (Marco-Dur) 100 mg EVERY 12 HOURS ORAL 12/28/16 21:00 01/27/17 08:59 12/30/16 09:22 Vancomycin HCl (Vanco rx to dose) 1 ea DAILY PRN MISC Per rx protocol 12/29/16 14:45 01/28/17 14:44 Vancomycin HCl/ Dextrose 250 ml @ 166.667 mls/hr Q12H IVPB 12/30/16 17:00 01/04/17 16:59 Vitamin D (Vitamin D) 2,000 intlu DAILY ORAL 12/30/16 09:00 01/29/17 08:59 12/30/16 09:22 Zenobia Mccloud NP (Vanchtein) Dec 30, 2016 15:10
[2016-12-30 16:00] VITALS: BP 161/95
[2016-12-30] MEDS ORDERED: Sennosides 8.6mg ORAL ONE ×2 (16:00→16:30)
[2016-12-30] MEDS ORDERED: Montelukast 10mg tablet ORAL SCH (16:30)
[2016-12-30] MEDS ORDERED: D5W 275ml ONE (17:23)
[2016-12-30] MEDS ORDERED: Tubing IV Secondary IV ONE (17:23)
[2016-12-30] MEDS ORDERED: ZOSYN 3.373.375 GM/1 IVPB (17:55)
[2016-12-30] MEDS ORDERED: VANCOMYCIN1 GM/2502 IVPB (17:57)
[2016-12-30] MEDS ORDERED: RESTORIL15 MG ORAL (17:57)
[2016-12-30] MEDS ORDERED: THEOPHYLLINE A100 MG ORAL (17:57)
[2016-12-30] MEDS ORDERED: MONTELUKAST SOD10 MG ORAL (17:58)
[2016-12-30] MEDS ORDERED: HEPARIN SO5000 UNIT2 SUBQ (17:59)
[2016-12-30] MEDS ORDERED: SOLU-MEDRO125 MG/21 IJ (18:00)
[2016-12-30 19:56] VITALS: BP 158/89
[2016-12-30] MEDS ORDERED: Miralax 17gm pkt ORAL SCH (21:00)
[2016-12-31 14:31] LABS: OTHERS PATHOLOGIST COMMENT
--- NOTE | 2016-12-31 15:10 | Discharge Summary ---
Discharge Summary Hospital Course Date of Admission Dec 28, 2016 at 00:58 Date of Discharge Dec 30, 2016 at 20:50 Admitting Diagnosis SOB HPI Jasper Franklin is a 61 year old male who was admitted on Dec 28, 2016 at 00:58 for Shortness Of Breath Hospital Course [id number] Discharge Discharge Disposition Patient was discharged to Acute Care Facility(02) Discharge Diagnoses: Rylie Park NP Dec 31, 2016 15:10
--- NOTE | 2017-01-01 03:00 | Discharge Summary 2 SIG ---
DATE OF ADMISSION: 12/28/2016 DATE OF DISCHARGE: 12/30/2016 CHEMICAL PACKAGER: Kaylie Chavez M.D. BRIEF HOSPITAL COURSE: The patient is a 61-year-old male with history of asthma, hypertension, and diabetes mellitus, presented to ED for complaints of shortness of breath for one day accompanied with productive cough. He had been using nebulizer machine at home and has been taking his inhaler Advair without any improvement of symptoms. On evaluation at ED, he was given nebulizer treatments and was started on steroids. Laboratory work showed a stable hemoglobin and hematocrit. There was no leukocytosis. Chest x-ray done showed pneumonia. EKG showed T-wave inversion in the inferior and lateral leads. Troponin was less than 0.05. He was admitted to telemetry for COPD exacerbation and purulent bronchitis. He was given respiratory treatment and was continued on IV Solu-Medrol. He was given Theophylline 100 mg q.12 hours. He had a recent admission a month prior due to pneumonia. He was followed by Infectious Disease specialist and was given Zosyn and vancomycin. Initial blood culture showing growth of Staphylococcus coagulase-negative. Repeat blood culture was done, results pending. Echocardiogram showed 60% to 65% with normal left ventricular size, function, and wall motion. Blood pressure was elevated and amlodipine dose was increased to 10 mg. He was continued on aspirin and Lipitor. He was eventually transferred to a contracted facility. FINAL DIAGNOSES: 1. Acute chronic obstructive pulmonary disease exacerbation. 2. Acute purulent bronchitis. 3. Hypertensive urgency. 4. Diabetes mellitus. 5. Hypokalemia. 6. Bacteremia. 7. Constipation. DISPOSITION: The patient was discharged to [facility]. DISCHARGE MEDICATIONS: Refer to medication list. Bill Barry M.D. I have been assigned to dictate discharge summary on this account and I was not involved in the patient's management. Rylie Park N.P. DR: EARL JOB#: [id number] CC: ANI
--- NOTE | 2017-01-07 15:41 | Cardiology Report ---
APPROVED REPORT EKG Measurement Heart [id number] Normal sinus rhythm Prolonged QT Abnormal ECG
== END 2016-12-30 20:50 | disposition short-term general hospital (02) | DRG 140 ==
LOC: EDBD 22:57 → EMR 23:12 → 2E 12-28 00:58 → EDBEDREQ 12-28 02:08 → 4E 12-28 15:32
DX: J44.1 Chronic obstructive pulmonary disease with (acute) exacerbation (principal); R78.81 Bacteremia; E11.9 Type 2 diabetes mellitus without complications; E87.6 Hypokalemia; J20.9 Acute bronchitis, unspecified; D72.829 Elevated white blood cell count, unspecified; I16.0 Hypertensive urgency; K59.00 Constipation, unspecified; J44.0 Chronic obstructive pulmonary disease with (acute) lower respiratory infection; Z72.0 Tobacco use
CPT/HCPCS: 36415; 71010; 80053; 81003; 82378; 82550; 82553; 82607; 82746; 82962; 83540; 83550; 83615; 83735; 83880; 84100; 84484; 85007; 85025; 85044; 85060; 85610; 85651; 85730; 86140; 87040; 87181; 93005; 93306; 94640; 94664; 99285; J1815; J7620; J8499